=== PATIENT | male | born 1950 | race Caucasian/White ===

== ENCOUNTER 2018-02-22 06:59 | Day surgery (SDC) | payer MEDICARE ==
[~2018-02-22] VITALS: Ht 180.3 cm; Wt 69.5 kg
[~2018-02-22 06:59] MED LIST: ARED PO; ASPI-496 PO; ATOR-2 PO; BUPIVACAINE/PF-EPI 0.5% 1:200K ONE; CHOL10003 PO; DOCU240C53 PO; FURO20TA3 PO; GLUC500T11 PO; HUM100VI6 SC; LACT10SO28 PO; LISI-167 PO; METO-93 PO; MULT-224 PO; PANT40TA5 PO; POTA20TA89 PO; SPIR25TA3 PO; TAMS-11 PO; THIA100T10 PO
[2018-02-22] MEDS ORDERED: LACTATED RINGERS 1,000 ML IV SCH (07:24)
[2018-02-22] MEDS ORDERED: OXYcodone IR 5MG TABLET PO ONE (07:30)
[2018-02-22] MEDS ORDERED: ACETAMINOPHEN 500 MG TABLET PO ONE (07:30)
[2018-02-22] MEDS ORDERED: GABAPENTIN 300 MG CAPSULE PO ONE (07:30)
[2018-02-22 07:40] VITALS: BP 142/83
[2018-02-22] MEDS ORDERED: ONDANSETRON ODT 8 MG ONE (07:46)
[2018-02-22] MEDS ORDERED: BUPIVACAINE/PF 0.25% ONE (07:46)
[2018-02-22] MEDS ORDERED: FENTANYL PF 100 MCG/2ML ONE ×2 (07:46→10:05)
[2018-02-22] MEDS ORDERED: ROCURONIUM 10MG/ML,5ML ONE (07:46)
[2018-02-22] MEDS ORDERED: PROPOFOL 10 MG/ML, 20ML ONE (07:46)
[2018-02-22] MEDS ORDERED: CEFAZOLIN 1,000 MG ONE (07:46)
[2018-02-22] MEDS ORDERED: OXYcodone 5 MG/5 ML ORAL.SOL UDC PO PRN (08:00)
[2018-02-22] MEDS ORDERED: LABETALOL 5MG/ML, 20ML IV PRN (08:00)
[2018-02-22] MEDS ORDERED: PROMETHAZINE 25 MG/ML, 1ML IV PRN (08:00)
[2018-02-22] MEDS ORDERED: ONDANSETRON 2MG/ML, 2ML IVPush PRN (08:00)
[2018-02-22] MEDS ORDERED: FENTANYL PF 100 MCG/2ML IV PRN (08:00)
[2018-02-22] MEDS ORDERED: ALBUTEROL SULFATE 2.5 MG/3 ML NPPB PRN (08:00)
[2018-02-22] MEDS ORDERED: hydrALAzine 20 MG/ML, 1ML IV PRN (08:00)
[2018-02-22] MEDS ORDERED: MEPERIDINE/PF 25MG/0.5ML IVPush PRN (08:00)
[2018-02-22] MEDS ORDERED: morphine SULFATE 10 MG/ML, 1ML IV PRN (08:00)
[2018-02-22] MEDS ORDERED: EPHEDRINE 50 MG/ML, 1ML IVPush PRN (08:00)
[2018-02-22] MEDS ORDERED: METOPROLOL 1 MG/ML, 5ML IV PRN (08:00)
[2018-02-22] MEDS ORDERED: BUPIVACAINE/PF-EPI 0.5% 1:200K ONE (08:42)
[2018-02-22] MEDS ORDERED: NEOSTIGMINE 1 MG/ML, 10ML ONE (09:00)
[2018-02-22] MEDS ORDERED: GLYCOPYRROLATE 0.2MG/1ML, 5ML ONE (09:00)
[2018-02-22] MEDS ORDERED: OXYcodone 5 MG/5 ML ORAL.SOL UDC ONE (10:05)
[2018-02-22] MEDS ORDERED: DIPHENHYDRAMINE 50 MG/ML, 1ML ONE (10:32)
[2018-02-22] MEDS ORDERED: DIPHENHYDRAMINE 50 MG/ML, 1ML IVPush ONE (11:00)
== END 2018-02-22 17:45 ==
LOC: OUT 06:59
PROVIDERS: ATTEND Surgery
DX: K40.91 Unilateral inguinal hernia, without obstruction or gangrene, recurrent (principal); E11.9 Type 2 diabetes mellitus without complications; I10 Essential (primary) hypertension; Z90.49 Acquired absence of other specified parts of digestive tract; Z98.890 Other specified postprocedural states
CPT/HCPCS: 49520; 82962; C1781; J0690; J1200; J2704; J2710; J3010; J3490; J7120; Q0162